=== PATIENT | female | born 1965 | race Caucasian/White ===

== ENCOUNTER 2021-07-08 15:11 | Emergency (ER) | payer OTHER ==
[~2021-07-08 15:11] MED LIST: PROMETHEGA12.5 MG/SU PR; ZUPLENZ4 MG SL
[2021-07-08 15:53] LABS: BASOPHIL 0.2 % (0-2); EOSINOPHIL 0.7 % (0-5); HCT 46.7 % (37.0-47.0); HGB 16.3 g/dl (12.5-16.0); LYMPHOCYTE 39.6 % (15-48); MCH 32.7 pg (25.0-31.0); MCHC 34.9 g/dL (32.0-36.0); MCV 93.6 fL (78.0-100.0); MONOCYTE 5.4 % (0-12); MPV 10.6 fL (6.0-9.5); NEUTROPHIL 53.7 % (41-80); NRBC 0; PLT 233 K/uL (150-400); RBC 4.99 M/uL (4.20-5.40); RDW 12.5 % (11.5-14.0); WBC 8.3 K/uL (4.0-10.5)
[2021-07-08 16:15] LABS: ALBUMIN 4.2 g/dL (3.4-5.0); BILIRUBIN - TOTAL 3.1 mg/dL (0.2-1.0); CREATININE 0.88 mg/dL (0.51-0.95); GLOBULIN (CALCULATION) 3.6 g/dL; POTASSIUM 3.3 mmol/L (3.5-5.1); TOTAL PROTEIN 7.8 g/dL (6.4-8.2)
[2021-07-08 22:01] LABS: BILIRUBIN 1+ mg/dL (NEGATIVE); BLOOD NEGATIVE Ery/uL (NEGATIVE); CLARITY CLEAR (CLEAR); COLOR YELLOW (YELLOW); GLUCOSE (U) NORMAL (NORMAL); LEUKOCYTES NEGATIVE Leu/uL (NEGATIVE); NITRITE NEGATIVE (NEGATIVE); PROTEIN NEGATIVE (NEGATIVE); SPECIFIC GRAVITY <=1.005 (1.001-1.030); pH 6.5 (5.0-9.0)
[2021-07-08] MEDS ORDERED: ZOFRAN4 M1 PO (22:26)
[2021-07-11 05:10] LABS: HBSAG SCREEN Negative (Negative); HEP A AB, IGM Negative (Negative); HEP B CORE AB, IGM Negative (Negative); HEP C VIRUS AB 0.2 (0.0-0.9)
== END 2021-07-08 23:00 | disposition home or self-care (01) ==
LOC: FER 15:11
PROVIDERS: Emergency Medicine; Internal Medicine
DX: R11.2 Nausea with vomiting, unspecified (principal); R94.5 Abnormal results of liver function studies; I10 Essential (primary) hypertension
CPT/HCPCS: 36415; 80053; 80074; 81003; 85025; J2405; J7030; Q9967